=== PATIENT | female | born 2000 ===

== ENCOUNTER 2022-08-19 00:26 | Emergency (ER) | payer SELFPAY ==
[2022-08-19 00:29] VITALS: BP 131/87; PULSE 123; RESP 24; TEMP 36.7; O2SAT 99
--- NOTE | 2022-08-19 00:33 | ECG_ITS ---
Measurements Intervals [place] Rate: 119 P: 66 SC: 133 QRS: 48 QRSD: 88 T: 8 QT: 340 QTc: 478 Interpretive Statements SINUS TACHYCARDIA NONSPECIFIC T-WAVE ABNORMALITY BORDERLINE ECG NO PREVIOUS ECG AVAILABLE FOR COMPARISON Electronically Signed On 08-19-2022 15:47:24 [employer] by Rocky Winkler M.D.
--- NOTE | 2022-08-19 06:06 | PC.NURSE ---
Pt called for triage, no answer
--- NOTE | 2022-08-19 06:07 | PC.NURSE ---
Pt called for room, no answer
== END 2022-08-19 06:07 | disposition left against medical advice (07) ==
LOC: ANHED 06:38
PROVIDERS: Emergency Provider Emergency Medicine
DX: R06.02 Shortness of breath (principal)
CPT/HCPCS: 93005; 99199